=== PATIENT | female | born 1955 | race Caucasian/White ===

== ENCOUNTER → 2019-12-24 | Outpatient (CLI) | payer OTHER ==
[~2019-12-24] MED LIST: CALC1TAB PO; CYCL5TAB PO; VITA1TAB19 PO; vitamin d PO
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
== END ==
LOC: PNCL 09:35
PROVIDERS: ATTEND Anesthesiology
DX: M54.12 Radiculopathy, cervical region (principal); V98.8XXA Other specified transport accidents, initial encounter; Y93.89 Activity, other specified; Y92.89 Other specified places as the place of occurrence of the external cause; Y99.8 Other external cause status; Z79.899 Other long term (current) drug therapy
CPT/HCPCS: G0463

== ENCOUNTER → 2019-12-31 | Outpatient (CLI) | payer OTHER ==
[~2019-12-31] MED LIST changes: +IOHEXOL 180 MG/ML 10 ML VIAL. ONE; +methylPREDNISolone ACETATE 40 MG/ML VIAL. ONE; +methylPREDNISolone ACETATE 80 MG/ML VIAL. ONE
--- NOTE | 2019-12-31 10:52 | PDOC ---
Progress Note - Pain Clinic Date of Service: DOS: DATE: 12/31/19 TIME: 10:48 Diagnosis: Dx: Cervical radiculopathy with cervical degenerative disease and cervical spinal stenosis History or Present Illness: HPI: 64-year-old female returns follow-up status post initial evaluation and preauthorization for cervical epidural steroid injection. Patient is obtained that now would like to proceed. Complains of pain base the neck into the left shoulder and upper extremity as it was previously greatly improved with Medrol Dosepak for about 4 days but the pain is returned now and is essentially at baseline patient which is burning aching tight constant the base the neck and left shoulder some on the right but mostly in the left shoulder and upper extremity as previously patient ports is a 9 on scale 10 is worse over the past week 7 on average to its least is a 7 today. Patient reports no new motor or sensory deficits or other complaints. Physical Exam: VS: Blood pressure is 149/78 respirations are 16 temperature 98.0 F weight is 150 pounds PE: PHYSICAL EXAMINATION: GENERAL: The patient is awake, alert, oriented, appropriate, very pleasant demeanor HEENT: Shows normocephalic, atraumatic. Extraocular movements are intact and symmetrical. NECK: Shows anterior throat supple without palpable lymphadenopathy noted. Swallow reflex symmetrical. CHEST: Shows normal on inspection. Breath sounds are clear bilaterally. HEART: Shows S1, S2 clear. No murmurs auscultated. ABDOMEN: Soft, nontender, nondistended. No palpable organomegaly is noted. No rebound or guarding demonstrated. BACK: Shows spine grossly in the midline. Normal-appearing cervical lordotic curvature. Cervical spine shows good rotation motion both laterally as well as full extension full forward flexion with some mild discomfort but without limitation of rotation. There is slightly increased thoracic kyphosis, some minor flattening of the lumbar lordotic curvature. Lumbar paraspinous muscles show symmetrical on inspection, on palpation shows some moderate tenderness diffusely throughout the upper, middle and lower distribution of the paraspinous muscles bilaterally and also into the lower thoracic paraspinous musculature, firm and tender, but without specific trigger points, without radiation of pain. The patient has good rotational motion of the lumbar spine, both laterally as well as extension and flexion without significant difficulty. No tenderness over the spinous processes, sacrum or sacroiliac regions. EXTREMITIES: Upper extremities show deep tendon reflexes 2+ in the biceps and triceps tendons. Motor exam is 5 on a scale of 5 with right survey technician strength, biceps and triceps flexion and 4/5 on the left. Peripheral pulses are 2+ posterior radial. No peripheral edema is noted bilaterally. Upper extremities are warm and dry to touch, equal in color and appearance. SKIN: Shows warm and dry, good turgor. No edema. No sores, rashes or bruising throughout. Procedure: Procedure: Options were discussed with the patient. Patient's old chart was reviewed as her current medication regimen updated current review of systems updated today as well. We will proceed with a cervical epidural steroid injection today with fluoroscopic guidance. Risks were discussed including but not limited to: Bleeding, infection, possibility of epidural hematoma and subsequent neurol ogical compromise, dural puncture, headaches, spinal cord and/or nerve damage, side effects of steroid medication, and poor results regarding pain control. Patient understands wished to proceed. Patient will return to clinic in approximately 2 weeks for follow-up was counseled as to return appointment activity level and side effects to be aware of. Medication Injected: Med Injected: Procedure cervical epidural steroid injection at the C6-7 level, using local anesthetic under sterile prep and drape using C-arm fluoroscopic guidance under local anesthesia medications injected ; 120 mg Depo-Medrol + 5 mL normal saline and 2 mL contrast; condition at discharge is stable patient tolerated procedure well. and had no complications Condition at Discharge: Condition at Discharge: Condition at discharge is stable patient tolerated procedure well had no complications. POWER REBOLLAR MD Dec 31, 2019 10:52
== END ==
LOC: PNCL 09:54
PROVIDERS: ATTEND Anesthesiology
DX: M50.123 Cervical disc disorder at C6-C7 level with radiculopathy (principal); M48.02 Spinal stenosis, cervical region; Z79.899 Other long term (current) drug therapy
CPT/HCPCS: 62321; J1030; J1040; Q9965